=== PATIENT | male | born 1990 | race Caucasian/White ===

== ENCOUNTER 2017-05-03 13:54 | Emergency (ER) | payer BC ==
[~2017-05-03] VITALS: Ht 175.3 cm; Wt 120.0 kg
[2017-05-03 13:55] VITALS: BP 159/87; PULSE 70; RESP 20; TEMP 97.3; O2SAT 96
--- NOTE | 2017-05-03 14:01 | PD ---
Physical Exam Date Seen by Provider: May 03, 2017 Time Seen by Provider: 14:00 Data Data Last Documented VS Vital Signs Date Time Temp Pulse Resp B/P Pulse Ox O2 Delivery O2 Flow Rate FiO2 05/03/17 13:55 97.3 70 20 159/87 96 Room Air [facility] Supervised Visit with ALEJANDRO: No Narrative Course 26 YO M with 1 hour history of right sided back pain. Sudden onset. Never had a similar pain. Denies dysuria. + nausea. Vitals reviewed. Seen in triage, awaiting bed placement. Valerie Snyder May 03, 2017 14:01
[2017-05-03] MEDS ORDERED: VENTAER INH (14:06)
[2017-05-03] MEDS ORDERED: DULE100A INH (14:06)
[2017-05-03] MEDS ORDERED: SODIUM CHLOR 0.9% 1000 ML INJ 1,000 ML IV ONE (14:06)
[2017-05-03] MEDS ORDERED: MORPHINE SULFATE 4 MG/ML INJ IV ONE (14:15)
[2017-05-03] MEDS ORDERED: ONDANSETRON HCL 4 MG/2 ML VIAL IVP ONE (14:15)
[2017-05-03] MEDS ORDERED: KETOROLAC TROMETHAMINE 30 MG/ML (IVP) VIAL IVP ONE (14:15)
--- NOTE | 2017-05-03 14:17 | PD ---
HPI Chief Complaint: Flank/Kidney Pain Time Seen by Provider: 14:12 Travel History International Travel<30 days: No Contact w/Intl Traveler<30days: No Traveled to known affect area: No History of Present Illness HPI 26-year-old male that presents to the ED for evaluation of right flank pain. Per patient she's had this since almost 2 hours now. Per patient is unrelenting. Per patient it started all of a sudden. Per patient he seems to be moving towards the right lower abdomen. Per patient he is nauseous. He cannot sit still because of the pain. Per patient 10 out of 10. Per sharp. No blood in the urine. Denies any urinary symptoms. No bowel movement issues. No history of kidney stones. No chest pain or shortness of breath. No fevers chills or sweats. No injuries. Per patient he was not doing anything when the pain started. On exam he is in clear distress. No surgeries. No other medical problems. PFSH Social History Alcohol Use: No Tobacco Use: No Substance Use: No Allergies-Medications (Allergen,Severity, Reaction): Coded Allergies: No Known Allergies (Unverified , 05/03/17) Reported Meds & Prescriptions Reported Meds & Active Scripts Active Bactrim DS (Sulfamethoxazole-Trimethoprim) 800-160 Mg Tab 1 Tab PO BID 7 Days Zofran (Ondansetron HCl) 4 Mg Tab 4 Mg PO Q6HR PRN Tamsulosin (Tamsulosin HCl) 0.4 Mg Cap 0.4 Mg PO HS Diclofenac Sodium DR (Diclofenac Sodium) 75 Mg Tabdr 75 Mg PO BID PRN Lortab (Hydrocodone-Acetaminophen) 5-325 Mg Tab 1 Tab PO Q6H PRN Reported Dulera 120 Act Inh (Mometasone-Formoterol 120 Act Inh) 100-5 Mcg/Act Inh 2 Puff INH BID Ventolin Hfa 18 GM Inh (Albuterol Sulfate) 90 Mcg/Act Aer 2 Puff INH Q4-6H PRN Review of Systems Except as stated in HPI: all other systems reviewed are Neg Physical Exam Narrative GENERAL: SKIN: Warm and dry. HEAD: Atraumatic. Normocephalic. EYES: Pupils equal and round. No scleral icterus. No injection or drainage. ENT: No nasal bleeding or discharge. Mucous membranes pink and moist. Tongue is midline. no uvula deviation. NECK: Trachea midline. No JVD. CARDIOVASCULAR: Regular rate and rhythm. RESPIRATORY: No accessory muscle use. Clear to auscultation. Breath sounds equal bilaterally. GASTROINTESTINAL: Abdomen soft, non-tender, nondistended. Hepatic and splenic margins not palpable. MUSCULOSKELETAL: Extremities without clubbing, cyanosis, or edema. No obvious deformities. Patient has reproducible pain on the right flank. Very sensitive to touch in this area with positive CVA. NEUROLOGICAL: Awake and alert. No obvious cranial nerve deficits. Motor grossly within normal limits. Five out of 5 muscle strength in the arms and legs. Normal speech. PSYCHIATRIC: Appropriate mood and affect; insight and judgment normal. Data Data Last Documented VS Vital Signs Date Time Temp Pulse Resp B/P Pulse Ox O2 Delivery O2 Flow Rate FiO2 05/03/17 15:51 68 18 154/91 97 Room Air 05/03/17 13:55 97.3 Orders Complete Blood Count With Diff (05/03/17 14:06) Basic Metabolic Panel (Bmp) (05/03/17 14:06) Urinalysis - C+S If Indicated (05/03/17 14:06) Ct Abd/Pel W/O Iv Contrast (05/03/17 14:06) Iv Access Insert/Monitor (05/03/17 14:06) Ketorolac Inj (Toradol Inj) (05/03/17 14:15) Morphine Inj (Morphine Inj) (05/03/17 14:15) Ondansetron Inj (Zofran Inj) (05/03/17 14:15) Sodium Chlor 0.9% 1000 Ml Inj (Ns 1000 M (05/03/17 14:06) Ondansetron Inj (Zofran Inj) (05/03/17 15:00) Morphine Inj (Morphine Inj) (05/03/17 15:00) Sodium Chlor 0.9% 1000 Ml Inj (Ns 1000 M (05/03/17 15:51) Labs Laboratory Tests Test 05/03/17 05/03/17 14:15 15:12 White Blood Count 10.8 TH/MM3 Red Blood Count 5.42 MIL/MM3 Hemoglobin 15.6 GM/DL Hematocrit 46.7 % Mean Corpuscular Volume 86.1 FL Mean Corpuscular Hemoglobin 28.7 PG Mean Corpuscular Hemoglobin 33.3 % Concent Red Cell Distribution Width 14.4 % Platelet Count 261 TH/MM3 Mean Platelet Volume 8.8 FL Neutrophils (%) (Auto) 63.5 % Lymphocytes (%) (Auto) 27.2 % Monocytes (%) (Auto) 8.5 % Eosinophils (%) (Auto) 0.3 % Basophils (%) (Auto) 0.5 % Neutrophils # (Auto) 6.9 TH/MM3 Lymphocytes # (Auto) 3.0 TH/MM3 Monocytes # (Auto) 0.9 TH/MM3 Eosinophils # (Auto) 0.0 TH/MM3 Basophils # (Auto) 0.1 TH/MM3 CBC Comment DIFF FINAL Differential Comment Sodium Level 142 MEQ/L Potassium Level 4.1 MEQ/L Chloride Level 108 MEQ/L Carbon Dioxide Level 26.4 MEQ/L Anion Gap 8 MEQ/L Blood Urea Nitrogen 14 MG/DL Creatinine 1.00 MG/DL Estimat Glomerular Filtration 92 ML/MIN Rate Random Glucose 101 MG/DL Calcium Level 9.2 MG/DL Urine Color YELLOW Urine Turbidity HAZY Urine pH 6.0 Urine Specific [place] 1.034 Urine Protein 30 mg/dL Urine Glucose (UA) NEG mg/dL Urine Ketones TRACE mg/dL Urine Occult Blood MOD Urine Nitrite NEG Urine Bilirubin NEG Urine Urobilinogen 2.0 MG/DL Urine Leukocyte Esterase NEG Urine RBC 32 /hpf Urine WBC 1 /hpf Urine Squamous Epithelial <1 /hpf Cells Urine Bacteria RARE /hpf Urine Mucus MANY /lpf Microscopic Urinalysis Comment CULT NOT INDICATED MDM Medical Decision Making Medical Screen Exam Complete: Yes Emergency Medical Condition: Yes Medical Record Reviewed: Yes Interpretation(s) Last Impressions Abdomen/Pelvis CT 05/03/17 1406 Signed Impressions: Service Date/Time: Wednesday, May 03, 2017 14:44 - CONCLUSION: 1. Punctate calcified calculus in the proximal right ureter with subtle right-sided pelviectasis. Additional punctate nonobstructing calcified calculus in the inferior pole of the right kidney. 2. Normal appendix. 3. Subtle fat containing left inguinal hernia. Evangelista Blair MD CBC & BMP Diagram 05/03/17 14:15 Differential Diagnosis flank pain vs kidney stone vs chest pain vs pyloneprhitis vs muscle strain Narrative Course 26 yo male here for flank pain. Properly seen and found to have what appears to be kidney stone. Labs and imaging ordered. meds given. Labs and imaging shows kidney stone with possible infection. patient reassured. Feels improved. Given prescriptions for lortab, diclofenac sodium, bactrim, flomax, zofran. Close follow up with PCP. Hydration. See ED if worst. Diagnosis Primary Impression: Kidney stone on right side Patient Instructions: General Instructions, Narcotic given in the ED Additional Instructions: Take meds as prescribed. F/u with PCP. See ED if worst. Do not drink or drive while taking pain med. Med/Other Pt SpecificInfo: Prescription(s) given Scripts Sulfamethoxazole-Trimethoprim (Bactrim DS)800-160 Mg Tab1 Tab PO BID 7 Days Ref 0 Prov:Yessi Gonzalez MD 05/03/17 Ondansetron (Zofran)4 Mg Tab4 Mg PO Q6HR PRN (NAUSEA OR VOMITING) #20 TAB Ref 0 Prov:Yessi Gonzalez MD 05/03/17 Tamsulosin 0.4 Mg Cap0.4 Mg PO HS #15 CAP Ref 0 Prov:Yessi Gonzalez MD 05/03/[address] 75 Mg Tabdr75 Mg PO BID PRN (PAIN SCALE 1 TO 10) #20 TAB Prov:Yessi Gonzalez MD 05/03/17 Hydrocodone-Acetaminophen (Lortab)5-325 Mg Tab1 Tab PO Q6H PRN (PAIN) #20 TAB Prov:Yessi Gonzalez MD 05/03/17 Disposition: 01 DISCHARGE HOME Condition: Stable Ulises Lang May 03, 2017 14:17
[2017-05-03 14:24] LABS: AUTOMATED NEUTROPHIL # 6.9 TH/MM3 (1.8-7.7); BASOPHIL # 0.1 TH/MM3 (0-0.2); BASOPHIL % 0.5 % (0.0-2.0); EOSINOPHIL % 0.3 % (0.0-4.0); HEMATOCRIT 46.7 % (39.0-51.0); HEMO FLAGS DIFF FINAL; LYMPH % 27.2 % (9.0-44.0); MEAN CELL VOLUME 86.1 FL (80.0-100.0); MEAN CORPUSCULAR HEMOGLOBIN 28.7 PG (27.0-34.0); MEAN CORPUSCULAR HGB CONC 33.3 % (32.0-36.0); MONO % 8.5 % (0.0-8.0); NEUT % 63.5 % (16.0-70.0); PLATELET COUNT 261 TH/MM3 (150-450); RED BLOOD COUNT 5.42 MIL/MM3 (4.50-5.90); RED CELL DISTRIBUTION WIDTH 14.4 % (11.6-17.2); WHITE BLOOD COUNT 10.8 TH/MM3 (4.0-11.0)
[2017-05-03 14:46] LABS: BICARBONATE 26.4 MEQ/L (21.0-32.0); POTASSIUM 4.1 MEQ/L (3.5-5.1)
[2017-05-03] MEDS ORDERED: ONDANSETRON HCL 4 MG/2 ML VIAL IV PUSH ONE (15:00)
[2017-05-03] MEDS ORDERED: MORPHINE SULFATE 4 MG/ML INJ IV PUSH ONE (15:00)
--- NOTE | 2017-05-03 15:01 | RADRPT ---
EXAM DATE/TIME: 05/03/2017 14:44 [facility] COMPARISON: No previous studies available for comparison. INDICATIONS : Right flank pain. ORAL CONTRAST: No oral contrast ingested. RADIATION DOSE: 16.71 CTDIvol (mGy) MEDICAL HISTORY : None SURGICAL HISTORY : None. ENCOUNTER: Initial ACUITY: 1 day PAIN SCALE: 7/10 LOCATION: Right Abdomen TECHNIQUE: Volumetric scanning of the abdomen and pelvis was performed. Using automated exposure control and ad justment of the mA and/or kV according to patient size, radiation dose was kept as low as reasonably achievable to obtain optimal diagnostic quality images. FINDINGS: LOWER LUNGS: The visualized lower lungs are clear. LIVER: Homogeneous density without lesion. There is no dilation of the biliary tree. No calcified gallston es. SPLEEN: Normal size without lesion. PANCREAS: Within normal limits. KIDNEYS: Punctate calcified calyceal calculus in the anterior inferior pole the right kidney. There is also pu nctate calcified calculus in the proximal ureter. Subtle pelviectasis on the right. No additional rad iopaque renal calculi. Left kidney is within normal limits without evidence for hydronephrosis. ADRENAL GLANDS: Within normal limits. VASCULAR: There is no aortic aneurysm. BOWEL/MESENTERY: Appendix is visualized and normal in appearance. Bowel is grossly unremarkable without evidence for o bstruction. No free fluid or drainable fluid collection in the abdomen. ABDOMINAL WALL: Within normal limits. RETROPERITONEUM: There is no lymphadenopathy. BLADDER: Bladder is nearly completely decompressed. No definite radiopaque calculi in the bladder. REPRODUCTIVE: Within normal limits. INGUINAL: Subtle left sided fat containing inguinal hernia. MUSCULOSKELETAL: Within normal limits for patient age. CONCLUSION: 1. Punctate calcified calculus in the proximal right ureter with subtle right-sided pelviectasis. Add itional punctate nonobstructing calcified calculus in the inferior pole of the right kidney. 2. Normal appendix. 3. Subtle fat containing left inguinal hernia. Evangelista Blair MD on May 03, 2017 at 14:55 Board Certified Radiologist. This report was verified electronically.
[2017-05-03 15:36] LABS: BACTERIA, URINE RARE /hpf; BLOOD, URINE MOD (NEG); COMMENT (UR) CULT NOT INDICATED; CULTURE IF INDICATED CULT NOT INDICATED; GLUCOSE,URINE NEG (NEG); KETONE, URINE TRACE mg/dL (NEG); MUCUS URINE MANY /lpf (OCC); NITRITE,URINE NEG (NEG); SQUAMOUS EPITHELIAL CELL URINE <1 /hpf (0-5); URINE COLOR YELLOW (YELLW/STRAW)
[2017-05-03] MEDS ORDERED: TAMS0.4C4 PO (15:50)
[2017-05-03] MEDS ORDERED: ZOFR4TAB PO (15:50)
[2017-05-03] MEDS ORDERED: HYDR-3533 PO (15:50)
[2017-05-03] MEDS ORDERED: DICL75TA PO (15:50)
[2017-05-03] MEDS ORDERED: BACT800T5 PO (15:50)
[2017-05-03 15:51] VITALS: BP 154/91; PULSE 68; RESP 18; O2SAT 97
[2017-05-03] MEDS ORDERED: SODIUM CHLOR 0.9% 1000 ML INJ 1,000 ML IV SCH (15:51)
== END 2017-05-03 16:34 | disposition home or self-care (01) ==
LOC: NEPD 13:54
DX: N20.0 Calculus of kidney (principal); K40.90 Unilateral inguinal hernia, without obstruction or gangrene, not specified as recurrent; Z79.899 Other long term (current) drug therapy
CPT/HCPCS: 74176; 80048; 81001; 85025; 96361; 96374; 96375; 96376; 99285; J1885; J2270; J2405; J7030